=== PATIENT | male | born 1990 | race Caucasian/White ===

== ENCOUNTER 2024-08-07 10:35 | Emergency (ER) | payer OTHER ==
[2024-08-07 10:47] VITALS: BP 134/96; PULSE 104; RESP 18; TEMP 97.5; BMI 30.4
[2024-08-07] MEDS ORDERED: IBUPROFEN 400 MG TABLET (FP) PO ONE (11:18)
[2024-08-07] MEDS: IBUPROFEN 400 MG TABLET (FP) PO ONE (11:20)
== END 2024-08-07 12:00 | disposition home or self-care (01) ==
LOC: FER 10:35
DX: S46.911A Strain of unspecified muscle, fascia and tendon at shoulder and upper arm level, right arm, initial encounter (principal); V43.52XA Car driver injured in collision with other type car in traffic accident, initial encounter
CPT/HCPCS: 73030-TC-RT-FY; 99283-25